=== PATIENT | male | born 1970 | race Two or more races ===

== ENCOUNTER 2017-10-19 22:23 | Emergency (ER) | payer SELFPAY ==
[~2017-10-19] VITALS: Ht 167.6 cm; Wt 74.8 kg
[2017-10-19 21:51] VITALS: BP 122/80
[~2017-10-19 22:23] MED LIST: NKM
--- NOTE | 2017-10-19 22:40 | Emergency Room Report ---
History of Present Illness General Chief Complaint: Flu Like Symptoms Source: Patient Present Illness HPI Is a 47-year-old male who presents with chief complaint of flulike illnesses. He said his been having fever and fell sick for the last 3 days. He called 911. Complaining of generalized body pain. No nausea no vomiting. The ER was very full he came in by EMS. He was triaged and placed in a chair. Patient is made to be placed in a room with the bed to lay down. I explained to him that once we get of bed, will place in the bed. In the meantime I want to initiate workup. He was unhappy with this and he got up and left. Family member was with him. He has she did this several time before he finally left. I spoke with him and family members. Patient is competent to leave AGAINST MEDICAL ADVICE. Allergies: Coded Allergies: No Known Allergies (Unverified , 10/19/17) Patient History Past Medical History: see triage record, old chart reviewed Past Surgical History: none Pertinent Family History: none Social History: Reports: alcohol use Immunizations: other Reviewed Nursing Documentation: PMH: Agreed, PSxH: Agreed Nursing Documentation-PMH Past Medical History: No Stated History Review of Systems Constitutional: Reports: fever Eye: Denies: eye pain, blurred vision ENT: Denies: ear pain, nose congestion, throat swelling Respiratory: Denies: cough, shortness of breath Cardiovascular: Denies: chest pain, palpitations Gastrointestinal: Denies: abdominal pain, diarrhea, nausea, vomiting Musculoskeletal: Denies: back pain, joint pain Skin: Denies: rash Neurological: Denies: headache, numbness Endocrine: Denies: increased thirst, increased urine Hematologic/Lymphatic: Denies: easy bruising All Other Systems: negative except mentioned in HPI Physical Exam Vital Signs Date Time Temp Pulse Resp B/P (MAP) Pulse Ox O2 Delivery O2 Flow Rate FiO2 10/19/17 21:51 97.9 105 18 122/80 99 Room Air vitals unremarkable Sp02 EP Interpretation: reviewed, normal General Appearance: well appearing, no apparent distress, alert Head: normocephalic, atraumatic Eyes: bilateral eye PERRL, bilateral eye EOMI ENT: hearing grossly normal, normal pharynx Neck: full range of motion, supple, no meningismus Respiratory: chest non-tender, lungs clear, normal breath sounds Cardiovascular #1: regular rate, rhythm, no murmur Gastrointestinal: normal bowel sounds, non tender, no mass, no organomegaly, no bruit, non-distended Musculoskeletal: back normal, gait/station normal, normal range of motion Psychiatric: mood/affect normal Skin: warm/dry Medical Decision Making Diagnostic Impression: Primary Impression: Influenza-like symptoms ER Course patient with flulike illness. From a clinical exam, no evidence of bacterial infection. Patient left before any bloodwork can be done. Last Vital Signs Date Time Temp Pulse Resp B/P (MAP) Pulse Ox O2 Delivery O2 Flow Rate FiO2 10/19/17 21:51 97.9 105 18 122/80 99 Room Air Status: unchanged Disposition: AGAINST MEDICAL ADVICE Condition: Stable RONEN BURKETT M.D. Oct 19, 2017 22:39
== END 2017-10-19 23:30 | disposition left against medical advice (07) ==
LOC: EDBD 22:23 → EMR 22:48
DX: J11.1 Influenza due to unidentified influenza virus with other respiratory manifestations (principal)
CPT/HCPCS: 99282